=== PATIENT | female | born 1950 | race Caucasian/White ===

== ENCOUNTER → 2019-08-15 | Outpatient (CLI) | payer MEDICARE, OTHER ==
[~2019-08-15] MED LIST: ADVA115A INH; ANAS1TAB2 PO; FLON1SPR NARES; HYDR12.55 PO; IRBE300T7 PO; LATA0.0015 OP; LEVO88TA3 PO; SIMV20TA22 PO; TIMOXEOPD OD
--- NOTE | 2019-08-25 12:03 | RADONC ---
RADIATION ONCOLOGY CONSULTATION NOTE DATE: 08/15/2019 CHART NUMBER: [id number] DIAGNOSIS: Left breast cancer. STAGE: I A, T1c, N0, M0, grade 2, ER positive, IL positive, HER2/keke negative, oncotype score 22. ECOG PERFORMANCE STATUS: 0 CONSULTATION NOTE: Ms. Hampton is a delightful 69-year-old white female with the diagnosis of what appears to be a stage I A, T1c, N0, M0, moderately differentiated invasive ductal carcinoma of the left breast which is ER positive, IL positive and HER2/keke negative who is presenting to us today status post lumpectomy and sentinel lymph node biopsy as well as axillary sampling for consideration of postoperative radiation therapy in attempt to increase the likelihood of achieving local control. HISTORY OF PRESENT ILLNESS: The patient was in her usual state of health but was found on routine mammogram done on 04/30/2019 to have a suspicious region in the outer aspect of her left breast. On 06/24/2019, the patient underwent lumpectomy, sentinel lymph node biopsy and axillary lymph node sampling. Pathology revealed a 12 mm moderately differentiated invasive carcinoma. The margins were re-excised and all margins were now negative. A total of four lymph nodes were sampled one of which was a sentinel lymph node and were negative for malignancy. The tumor was estrogen receptor positive, progesterone receptor positive and HER2/keke negative. Oncotype type testing was done with a recurrence score of 22 for a distance recurrent risk at 9 years with AI or CHU alone at 8%. It was deemed that she would not benefit from chemotherapy and has initiated anastrozole with her medical oncologist. I do not at this time have a medical oncology note however. She is now presenting for discussion of postoperative radiation therapy for conservative breast management. PAST MEDICAL HISTORY: The patient's past medical history is positive for cataract in the right eye for which she has had surgery. She is deaf in her left ear. She has hypertension. She had hyperthyroidism and underwent treatment with iodine 131. She is now hypothyroid and is on levothyroxine. She has had a partial knee replaced. She had a right mastectomy for DCIS with reconstruction in 2010 under the age of 79. ALLERGIES: The patient is allergic to CODEINE and PENICILLIN. SOCIAL HISTORY: The patient does not smoke cigarettes. She drinks alcohol socially. FAMILY HISTORY: The patient's family history is positive for a mother with breast cancer. REVIEW OF SYSTEMS: The patient's review of systems is positive for hearing loss in the left ear, but is otherwise noncontributory. Denies nausea, vomiting, fevers, chills, night sweats, diplopia, headaches, anxiety or depression, anorexia, weight loss, visual disturbances, chest pain, urinary or bowel difficulties, bone pain, or neurological problems. PHYSICAL EXAMINATION: Physical examination was deferred as per COVID-19 precautions. We will examine the patient's breast at the time of simulation. ASSESSMENT: Clearly the patient is a candidate for external beam radiation therapy and I have so informed her. I have discussed with the patient in detail the potential benefits as well as possible acute and chronic sequelae of external beam radiation therapy. We discussed logistics of treatment planning, simulation and subsequent fractionated daily radiation treatments. I did discuss with the patient in detail the options with regards to fractionation schedule. We discussed the traditional fractionation schedule for a total of 33 fractions of which 27 are delivered to the breast and the remaining 6 to the primary site versus the hypofractionated [place] protocol. The patient is leaning towards hypofractionation and we will run a treatment plan. I believe she would be a good candidate for that and a final decision will be made at time of planning. Thank you for allowing us to participate in the care of this very pleasant woman. If I could be of any further assistance, please feel free to contact me anytime. cc: MD Shelbi Fitzgerald MD Benjamin Phen, MD MTDD
== END ==
LOC: M ONCR 09:53
PROVIDERS: ATTEND Radiology Radiation Oncology
DX: C50.812 Malignant neoplasm of overlapping sites of left female breast (principal)

== ENCOUNTER 2019-08-20 10:28 | Outpatient (RCR) | payer MEDICARE, OTHER ==
[2019-08-20 11:29] LABS: BASO % 0.4 % (0.0-1.0); EOS # 0.3 10^3/uL (0.0-0.5); EOS % 4.7 % (0.0-3.0); HEMATOCRIT 38.8 % (36.0-47.0); HEMOGLOBIN 12.4 g/dl (12.0-15.5); LYMPH # 1.4 10^3/uL (1.5-5.0); MEAN CORPUSCULAR HEMOGLOBIN 30.5 pg (27.0-33.0); MEAN CORPUSCULAR VOLUME 95.3 fl (80.0-96.0); MONO # 0.5 10^3/uL (0.0-0.8); MONO % 7.1 % (0.0-5.0); NEUTROPHILS # 4.6 10^3/uL (1.5-8.5); NEUTROPHILS % 67.4 % (36.0-66.0); PLATELET COUNT, AUTOMATED 207 10^3/uL (150-450); RED BLOOD COUNT 4.07 10^6/uL (4.00-5.40); WHITE BLOOD COUNT 6.8 10^3/uL (4.0-10.0)
== END 2019-09-05 ==
LOC: M ONCR 10:28
PROVIDERS: ATTEND Radiology Radiation Oncology
DX: C50.812 Malignant neoplasm of overlapping sites of left female breast (principal)

== ENCOUNTER 2019-10-03 11:30 | Outpatient (RCR) | payer MEDICARE, OTHER | END 2019-10-06 | LOC: M ONCR 11:30 | PROVIDERS: ATTEND General Practice | DX: C50.812 Malignant neoplasm of overlapping sites of left female breast (principal); Z88.0 Allergy status to penicillin; Z88.5 Allergy status to narcotic agent ==

== ENCOUNTER → 2020-07-14 | Outpatient (CLI) | payer MEDICARE, OTHER ==
--- NOTE | 2020-07-15 08:26 | RADONC ---
Radiation Oncology Hx/FUP Radiation Oncology Hx/FUP Date of Service: Jul 14, 2020 Pt Identifier Shirin Hampton is a 70 year old female seen for a followup visit today at the department of radiation oncology for a history of left breast cancer pT1cN0(sn)M0 ER/CO+ HER2- Grade 2. She underwent lumpectomy and SLNB on 06/24/19 in [facility] and initiated anastrozole with her medical oncologist down there. She returned to [place] and underwent adjuvant partial breast RT 40 Gy in 15 fractions completed 10/03/19. She is seen now after overwintering in [place] for routine follow up and survivorship care. Diagnosis/Treatment History Oncologic History 2010-Right mastectomy for DCIS with reconstruction Left breast cancer 2019 The patient was in her usual state of health but was found on routine mammogram done on 04/30/2019 to have a suspicious region in the outer aspect of her left breast. On 06/24/2019, the patient underwent lumpectomy, sentinel lymph node biopsy and axillary lymph node sampling. Pathology revealed a 12 mm moderately differ entiated invasive carcinoma. The margins were re-excised and all margins were now negative. A total of four lymph nodes were sampled one of which was a sentinel lymph node and were negative for malignancy. The tumor was estrogen receptor positive, progesterone receptor positive and HER2/keke negative. Oncotype type testing was done with a recurrence score of 22 for a distance recurrent risk at 9 years with AI or CHU alone at 8%. It was deemed that she would not benefit from chemotherapy and has initiated anastrozole with her medical oncologist. Completed adjuvant partial breast RT 40 Gy in 15 fractions 09/14/20-10/02/20 Recent data: 05/26/20 Left Mammogram ([facility]) Negative BIRADS 3 Survivorship Test Due Next Last result Notes TSH, T4* 6m post-tx, then q1y N/A Carotid US* q10 y post-tx N/A Smoking cessation Assess annually if applicable N/A Screening CT chest q1y if eligible per USPSTF N/A Mammograms Min q1y, if breast conservation winter 202005/26/20 negative CBC,CMP, Lipids q1y 2021 DEXA q2y if on AI 2021 Medical oncologist in [place] overseeing Interval History Feels well. No breast or skin complaints. No swelling or pain in the arms. She intends to go to [place] in November and stay until June 2021. Appetite good and weight stable. Current Therapy Anastrozole Stage Stage IA left breast cancer pT1cN0(sn) M0 ER/CO+ HER2- Grade 2 Social History: Never smoker Social drinker Allergies / Meds Home Meds Reported Medications Simvastatin (Simvastatin) 20 Mg Tablet, 20 MG PO DAILY, TAB 08/15/19 Latanoprost/Pf (Latanoprost 0.005% Eye Drop) 7.5 Ml Drops, 1 DROP OP DAILY, CONTAINER 08/15/19 Irbesartan (Irbesartan) 300 Mg Tablet, 300 MG PO DAILY for 30 Days, #30 TAB 08/15/19 Hydrochlorothiazide (Hydrochlorothiazide) 12.5 Mg Tablet, 12.5 MG PO DAILY, TAB 08/15/19 Fluticasone Propionate (Flonase Allergy Relief) 9.9 Ml [place].susp, 2 SPRAY NARES DAILY for 30 Days, #9.9 ML 08/15/19 Timolol Maleate (Timolol Maleate) 0.25% [place].gel, 1 DROP OD QAM for 30 Days, #5 ML 08/15/19 Anastrozole (Anastrozole) 1 Mg Tablet, 1 TAB PO DAILY for 30 Days, #30 TAB 08/15/19 Levothyroxine Sodium (LEVOTHYROXINE SODIUM) 88 Mcg Tablet, 88 MCG PO DAILY for 30 Days, #30 TAB 08/15/19 Fluticasone Propion/Salmeterol (Advair Hfa 115-21 Mcg Inhaler) 12 Gm Hfa.aer.ad, 2 PUFF INH BID for 30 Days, #12 GRAM 08/15/19 Review of Systems Review of Systems Constitutional: Denies: Fatigue, Weight Loss Eyes: Denies: Pain HEENT: Denies: Head Aches Skin: Denies: Rash, Lesions Breast: Denies: New Breast Lumps / Masses, Nipple Retraction, Nipple Discharge, Breast Skin Changes, Breast Pain or Tenderness, Other Breast Complaints Pulmonary: Denies: Dyspnea Cardiovascular: Denies: Chest Pain Gastrointestinal: Denies: Abdominal Pain Hematologic: Denies: Bruising, Bleeding Excessively Musculoskeletal: Denies: Neck pain, Arm pain, Back pain, Leg pain Neurological: Denies: Weakness, Numbness Psych: Reports: Mood Normal Physical Examination Vital Signs Wt 117 lbs T 97.7 P 62 RR 16 BP 143/76 O2 98% Pain 0 Fatigue 0 General Exam: Positive: Alert, Cooperative, No Acute Distress Eye Exam: Positive: PERRLA, EOMI ENT EXAM: Positive: Atraumatic, Mucous membr. moist/pink Neck Exam: Positive: Supple Chest Exam: Positive: Clear to auscultation Heart Exam: Positive: Rate Normal Breast Exam: Positive: Symmetric Bilaterally (Reconstructed right breast and left breast with similar shape and lay. ); Negative: Lumps or Masses (Mild fibrosis palpable at the left surgical site, no nodularity or mass. Right reconstructed breast without palpable abnormalities. No axillary adenopathy), Skin Changes (No RT related skin sequelae on left) Abdomen Exam: Positive: Soft Extremity Exam: Negative: Edema Skin Exam: Positive: Nl turgor and temperature Neuro Exam: Positive: Normal Gait, Normal Speech, Cranial Nerves 3-12 NL Psych Exam: Positive: Mental status NL Diagnostic and Laboratory Diagnostic Review Radiologic images, relevant labs and pathology reports were personally reviewed and discussed with Ms. Hampton. Assessment and Plan Impression Assessment Ms. Hampton is a 70 year old female with a history of left breast cancer pT1cN0(sn)M0 ER/CO+ HER2- Grade 2. She underwent lumpectomy and SLNB on 06/24/19 in [facility] and initiated anastrozole with her medical oncologist down there. She returned to [place] and underwent adjuvant partial breast RT 40 Gy in 15 fractions completed 10/03/19. She is seen now after overwintering in [place] for routine follow up and survivorship care. She is doing well without any evidence of recurrent disease on the left. Recent left mammogram was negative. Her next is scheduled for the Winter in [place]. As she intends to leave in the Fall and return in June 2021, we agreed to annual fol low up here. In the meantime she will see her medical oncologist in [place]. She is not due for any survivorship testing at this time. Performance Status ECOG 0 Plan Follow up in 12 months Ms. Hampton was encouraged to call with questions or concerns in the interim period. Billing Statement Total time of [22] minutes was spent preparing for the visit [1], obtaining HPI [4], examining the patient [3], reviewing diagnostic tests [1], discussing management options [4], coordinating care [1], and writing this note [8]. TAM ESTEVEZ MD Jul 15, 2020 08:26
== END ==
LOC: M ONCR 14:10
PROVIDERS: ATTEND General Practice
DX: C50.812 Malignant neoplasm of overlapping sites of left female breast (principal); Z92.3 Personal history of irradiation

== ENCOUNTER → 2021-07-13 | Outpatient (CLI) | payer MEDICARE, OTHER | LOC: M ONCR 14:03 | PROVIDERS: ATTEND General Practice | DX: Z08 Encounter for follow-up examination after completed treatment for malignant neoplasm (principal); C50.912 Malignant neoplasm of unspecified site of left female breast; Z79.811 Long term (current) use of aromatase inhibitors; Z79.899 Other long term (current) drug therapy; Z92.3 Personal history of irradiation; Z92.21 Personal history of antineoplastic chemotherapy ==

== ENCOUNTER → 2022-07-13 | Outpatient (CLI) | payer MEDICARE, OTHER | LOC: M ONCR 14:51 | PROVIDERS: ATTEND General Practice | DX: C50.912 Malignant neoplasm of unspecified site of left female breast (principal); Z71.2 Person consulting for explanation of examination or test findings; Z79.51 Long term (current) use of inhaled steroids; Z79.811 Long term (current) use of aromatase inhibitors; Z79.899 Other long term (current) drug therapy; Z90.11 Acquired absence of right breast and nipple; Z92.3 Personal history of irradiation; Z98.890 Other specified postprocedural states ==

== ENCOUNTER 2023-07-21 10:31 | Inpatient (IN) | payer MEDICARE, OTHER ==
[~2023-07-21] VITALS: Ht 149.9 cm; Wt 46.7 kg
[2023-07-21] MEDS: IRBESARTAN 150MG TAB PO SCH (09:00)
[~2023-07-21 10:31] MED LIST changes: +IRBE300T25 PO; -IRBE300T7 PO; +SIMVASTATIN 20 MG TAB PO SCH
[2023-07-21] MEDS ORDERED: FLUT1BLS INH (10:42)
[2023-07-21] MEDS ORDERED: ALBU8.5H INH (10:42)
[2023-07-21] MEDS ORDERED: PRED10TA2 PO (10:42)
[2023-07-21] MEDS ORDERED: LEVO100T5 PO (10:42)
[2023-07-21 11:45] LABS: BASO # 0.1 10^3/uL (0.0-0.2); BASO % 0.3 % (0.0-1.0); EOS % 0.1 % (0.0-3.0); HEMATOCRIT 49.5 % (36.0-47.0); HEMOGLOBIN 16.6 g/dl (12.0-15.5); LYMPH # 1.7 10^3/uL (1.5-5.0); LYMPH % 7.8 % (24.0-44.0); MEAN CORPUSCULAR HGB CONC 33.5 g/dl (32.0-36.5); MEAN CORPUSCULAR VOLUME 95.4 fl (80.0-96.0); MONO # 1.7 10^3/uL (0.0-0.8); MONO % 7.8 % (2.0-8.0); NEUTROPHILS # 18.3 10^3/uL (1.5-8.5); NEUTROPHILS % 82.8 % (36.0-66.0); PLATELET COUNT, AUTOMATED 469 10^3/uL (150-450); RED BLOOD COUNT 5.19 10^6/uL (4.00-5.40)
[2023-07-21 12:12] LABS: ALBUMIN 4.1 G/DL (3.2-5.2); ALKALINE PHOSPHATASE 151 U/L (46-116); ALT/SGPT 22 U/L (7.0-40); AST/SGOT 23 U/L (<34); BILIRUBIN,DIRECT 0.2 MG/DL (<0.4); BILIRUBIN,TOTAL 0.5 MG/DL (0.3-1.2); BLOOD UREA NITROGEN 19 MG/DL (9-23); CARBON DIOXIDE LEVEL 29 MMOL/L (20-31); CHLORIDE LEVEL 99 MMOL/L (98-107); GLOMERULAR FILTRATION RATE > 60.0 (>39); GLUCOSE, FASTING 113 MG/DL (74-106); POTASSIUM SERUM 4.1 MMOL/L (3.5-5.1); SODIUM LEVEL 138 MMOL/L (136-145); TOTAL PROTEIN 8.3 G/DL (5.7-8.2)
[2023-07-21 12:14] LABS: THYROID STIMULATING HORMONE 2.138 uIU/ML (0.55-4.78); THYROXINE (T4) 11.6 UG/DL (4.5-10.9)
[2023-07-21 12:18] LABS: VENOUS BASE EXCESS -0.2 (-2.0-2.0); VENOUS HCO3 25.6 MMOL/L (23.0-27.0); VENOUS O2 SATURATION 68.4 % (60.0-80.0); VENOUS PARTIAL PRESSURE CO2 45.9 mmHg (38.0-50.0); VENOUS PARTIAL PRESSURE O2 37.4 mmHg (30.0-50.0); VENOUS PH 7.364 UNITS (7.330-7.430); VENOUS STANDARD HCO3 23.6 MMOL/L
[2023-07-21] MEDS: IPRATROPIUM 0.5MG/ALBUTEROL 2.5MG INH SOL UD 3ML (DUONEB) NEB ONE (12:28)
[2023-07-21] MEDS: methylPREDNISolone 125MG 2ML VIAL IV ONE (12:32)
[2023-07-21 12:37] LABS: INR 0.99; PROTHROMBIN TIME 12.8 SECONDS (12.5-14.5)
[2023-07-21 13:03] LABS: PROCALCITONIN 0.09 ng/ml
[2023-07-21] MEDS ORDERED: ISOVUE-370 76% 100ML VIAL As Ordered ONE (13:09)
[2023-07-21] MEDS: LR 1,000 ML IV ONE ×2 (13:32→15:31)
[2023-07-21] MEDS: cefTRIAXone SOD 1 GM in D5W MINI-BAG PLUS 50 ML IV ONE (15:17)
[2023-07-21] MEDS: AZITHROMYCIN INJ 500 MG, VIAL MATE ADAPTER 1 EACH in NS 250 ML IV ONE (15:33)
[2023-07-21] MEDS ORDERED: DORZ2SOL5 OD (15:55)
[2023-07-21] MEDS ORDERED: XALA0.007 OD (15:55)
[2023-07-21] MEDS ORDERED: AMOX875T PO (15:57)
[2023-07-21] MEDS ORDERED: HOME MED LIST COMPLETE! XX SCH (16:00)
[2023-07-21 16:15] VITALS: BP 128/88; TEMP 99; O2SAT 93
[2023-07-21] MEDS: hydroCHLOROthiazide 12.5 MG CAPSULE PO SCH (16:31)
[2023-07-21] MEDS: SYMBICORT 80/4.5MCG INHALER 6GM INH SCH (19:10)
[2023-07-21 20:00] VITALS: BP 133/88; TEMP 98.8; O2SAT 95
[2023-07-21] MEDS: SIMVASTATIN 20 MG TAB PO SCH (20:34)
[2023-07-21] MEDS: LATANOPROST 0.005% OPHTH SOLN 2.5 ML OD SCH (20:34)
[2023-07-21] MEDS: COSOPT OCUMETER PLUS 10ML (DORZOLAMIDE/TIMOLOL) OD SCH (20:34)
[2023-07-22] VITALS (7 sets, daily range): BP systolic 138–165; BP diastolic 80–88; TEMP 97.9–98.1; O2SAT 84–96
[2023-07-22] MEDS: LEVOTHYROXINE 100MCG TABLET (0.1MG) PO SCH (05:04)
[2023-07-22 05:55] LABS: HEMATOCRIT 38.4 % (36.0-47.0); MEAN CORPUSCULAR HEMOGLOBIN 31.6 pg (27.0-33.0); MEAN CORPUSCULAR HGB CONC 32.8 g/dl (32.0-36.5); MEAN CORPUSCULAR VOLUME 96.2 fl (80.0-96.0); RED BLOOD COUNT 3.99 10^6/uL (4.00-5.40)
[2023-07-22 06:04] LABS: HEMOGLOBIN 12.6 g/dl (12.0-15.5); PLATELET COUNT, AUTOMATED 244 10^3/uL (150-450)
[2023-07-22 06:21] LABS: ALBUMIN 2.7 G/DL (3.2-5.2); ALKALINE PHOSPHATASE 99 U/L (46-116); ALT/SGPT 16 U/L (7.0-40); AST/SGOT 16 U/L (<34); BILIRUBIN,DIRECT 0.1 MG/DL (<0.4); BILIRUBIN,TOTAL 0.3 MG/DL (0.3-1.2); BLOOD UREA NITROGEN 16 MG/DL (9-23); CALCIUM LEVEL 9.1 MG/DL (8.3-10.6); CARBON DIOXIDE LEVEL 31 MMOL/L (20-31); CHLORIDE LEVEL 107 MMOL/L (98-107); CREATININE FOR GFR 0.62 MG/DL (0.55-1.30); GLOMERULAR FILTRATION RATE > 60.0 (>39); GLUCOSE, FASTING 102 MG/DL (74-106); SODIUM LEVEL 141 MMOL/L (136-145); TOTAL PROTEIN 5.7 G/DL (5.7-8.2)
[2023-07-22] MEDS: FLUTICASONE PROP 0.05% NASAL SPRAY 16 GM (FLONASE) NARES SCH (09:04)
[2023-07-22] MEDS: methylPREDNISolone 40MG 1ML VIAL IV SCH (09:04)
[2023-07-22] MEDS: AZITHROMYCIN 250MG TABLET PO SCH (09:06)
[2023-07-22] MEDS: ENOXAPARIN 40MG/0.4ML SYRINGE (J1650 PER 10MG) SC SCH (09:06)
[2023-07-22] MEDS: guaiFENesin SYRUP 200MG 10ML UDC PO PRN (17:04)
[2023-07-22] MEDS: cefTRIAXone SOD 1 GM in D5W MINI-BAG PLUS 50 ML IV SCH (17:05)
[2023-07-23] VITALS (9 sets, daily range): BP systolic 132–190; BP diastolic 62–106; TEMP 97.5–98.8; O2SAT 82–97
[2023-07-23 06:19] LABS: HEMATOCRIT 41.1 % (36.0-47.0); HEMOGLOBIN 13.6 g/dl (12.0-15.5); MEAN CORPUSCULAR HEMOGLOBIN 31.8 pg (27.0-33.0); MEAN CORPUSCULAR HGB CONC 33.1 g/dl (32.0-36.5); PLATELET COUNT, AUTOMATED 299 10^3/uL (150-450); RED BLOOD COUNT 4.28 10^6/uL (4.00-5.40); WHITE BLOOD COUNT 14.8 10^3/uL (4.0-10.0)
[2023-07-23 06:53] LABS: BLOOD UREA NITROGEN 21 MG/DL (9-23); CALCIUM LEVEL 9.2 MG/DL (8.3-10.6); CARBON DIOXIDE LEVEL 30 MMOL/L (20-31); CHLORIDE LEVEL 106 MMOL/L (98-107); CREATININE FOR GFR 0.73 MG/DL (0.55-1.30); GLOMERULAR FILTRATION RATE > 60.0 (>39); GLUCOSE, FASTING 102 MG/DL (74-106); POTASSIUM SERUM 4.5 MMOL/L (3.5-5.1); SODIUM LEVEL 144 MMOL/L (136-145)
[2023-07-23] MEDS: ANASTROZOLE 1MG TABLET (PATIENT'S OWN MED) PO SCH (09:56)
[2023-07-23] MEDS: **hydrALAZINE** 10 MG TAB PO ONE (14:08)
[2023-07-23 14:58] LABS: BASO % 0.2 % (0.0-1.0); HEMOGLOBIN 13.8 g/dl (12.0-15.5); LYMPH # 1.2 10^3/uL (1.5-5.0); LYMPH % 6.7 % (24.0-44.0); MEAN CORPUSCULAR HEMOGLOBIN 31.7 pg (27.0-33.0); MEAN CORPUSCULAR HGB CONC 33.7 g/dl (32.0-36.5); MEAN CORPUSCULAR VOLUME 94.3 fl (80.0-96.0); MONO # 0.4 10^3/uL (0.0-0.8); MONO % 2.1 % (2.0-8.0); NEUTROPHILS # 15.1 10^3/uL (1.5-8.5); NEUTROPHILS % 88.5 % (36.0-66.0); PLATELET COUNT, AUTOMATED 315 10^3/uL (150-450); RED BLOOD COUNT 4.35 10^6/uL (4.00-5.40); WHITE BLOOD COUNT 17.1 10^3/uL (4.0-10.0)
[2023-07-23 15:32] LABS: ALBUMIN 2.9 G/DL (3.2-5.2); ALKALINE PHOSPHATASE 107 U/L (46-116); ALT/SGPT 17 U/L (7.0-40); AST/SGOT 17 U/L (<34); BILIRUBIN,TOTAL 0.3 MG/DL (0.3-1.2); BLOOD UREA NITROGEN 24 MG/DL (9-23); CALCIUM LEVEL 9.2 MG/DL (8.3-10.6); CARBON DIOXIDE LEVEL 31 MMOL/L (20-31); CHLORIDE LEVEL 106 MMOL/L (98-107); CREATININE FOR GFR 0.67 MG/DL (0.55-1.30); GLOMERULAR FILTRATION RATE > 60.0 (>39); GLUCOSE, FASTING 118 MG/DL (74-106); MAGNESIUM LEVEL 1.9 MG/DL (1.8-2.4); SODIUM LEVEL 142 MMOL/L (136-145); TOTAL PROTEIN 6.3 G/DL (5.7-8.2)
[2023-07-23] MEDS: guaiFENesin SYRUP 200MG 10ML UDC PO PRN (20:28)
[2023-07-24 03:50] VITALS: BP 156/75; TEMP 95.2; O2SAT 95
[2023-07-24 06:24] LABS: HEMATOCRIT 41.9 % (36.0-47.0); MEAN CORPUSCULAR HEMOGLOBIN 31.9 pg (27.0-33.0); MEAN CORPUSCULAR HGB CONC 33.4 g/dl (32.0-36.5); MEAN CORPUSCULAR VOLUME 95.4 fl (80.0-96.0); PLATELET COUNT, AUTOMATED 306 10^3/uL (150-450); RED BLOOD COUNT 4.39 10^6/uL (4.00-5.40); WHITE BLOOD COUNT 11.4 10^3/uL (4.0-10.0)
[2023-07-24 06:53] LABS: BLOOD UREA NITROGEN 27 MG/DL (9-23); CALCIUM LEVEL 8.9 MG/DL (8.3-10.6); CARBON DIOXIDE LEVEL 32 MMOL/L (20-31); CHLORIDE LEVEL 103 MMOL/L (98-107); CREATININE FOR GFR 0.86 MG/DL (0.55-1.30); GLOMERULAR FILTRATION RATE > 60.0 (>39); GLUCOSE, FASTING 107 MG/DL (74-106); POTASSIUM SERUM 4.5 MMOL/L (3.5-5.1); SODIUM LEVEL 140 MMOL/L (136-145)
[2023-07-24 08:27] VITALS: BP 132/76; TEMP 98.6; O2SAT 92
[2023-07-24] MEDS: predniSONE 20 MG TAB PO SCH (08:32)
[2023-07-24 12:00] VITALS: BP 128/64; TEMP 97.5; O2SAT 94
[2023-07-24 20:00] VITALS: BP 128/70; TEMP 97.9; O2SAT 91
[2023-07-25 04:00] VITALS: BP 160/72; TEMP 98.1; O2SAT 92
[2023-07-25 05:59] LABS: HEMATOCRIT 41.2 % (36.0-47.0); HEMOGLOBIN 13.7 g/dl (12.0-15.5); MEAN CORPUSCULAR HEMOGLOBIN 31.1 pg (27.0-33.0); MEAN CORPUSCULAR HGB CONC 33.3 g/dl (32.0-36.5); MEAN CORPUSCULAR VOLUME 93.4 fl (80.0-96.0); PLATELET COUNT, AUTOMATED 294 10^3/uL (150-450); RED BLOOD COUNT 4.41 10^6/uL (4.00-5.40)
[2023-07-25 06:45] LABS: BLOOD UREA NITROGEN 25 MG/DL (9-23); CALCIUM LEVEL 9.1 MG/DL (8.3-10.6); CARBON DIOXIDE LEVEL 32 MMOL/L (20-31); CHLORIDE LEVEL 106 MMOL/L (98-107); CREATININE FOR GFR 0.76 MG/DL (0.55-1.30); GLOMERULAR FILTRATION RATE > 60.0 (>39); GLUCOSE, FASTING 80 MG/DL (74-106); POTASSIUM SERUM 3.8 MMOL/L (3.5-5.1); SODIUM LEVEL 142 MMOL/L (136-145)
[2023-07-25 07:55] VITALS: BP 150/78
[2023-07-25 07:58] LABS: PROCALCITONIN <0.04 ng/ml
[2023-07-25] MEDS ORDERED: PRED10TA2 PO (11:20)
[2023-07-25] MEDS ORDERED: GUAI100S51 PO (11:20)
[2023-07-26 19:09] LABS: URINE STREP PNEUMONIAE ANTIGEN NOT DETECTED (NOT DETECT)
== END 2023-07-25 11:59 | disposition home or self-care (01) | DRG 195 ==
LOC: M ED 10:31 → M ED INP 15:44 → EEVIPCON 15:44 → M MSPAV 16:16
PROVIDERS: ADMIT Internal Medicine; ATTEND Internal Medicine
DX: J12.89 Other viral pneumonia (principal); E03.9 Hypothyroidism, unspecified; E78.5 Hyperlipidemia, unspecified; H40.9 Unspecified glaucoma; I10 Essential (primary) hypertension; B34.8 Other viral infections of unspecified site; Z85.3 Personal history of malignant neoplasm of breast; I16.0 Hypertensive urgency; Z79.899 Other long term (current) drug therapy; Z88.5 Allergy status to narcotic agent

== ENCOUNTER → 2023-08-21 | Outpatient (CLI) | payer MEDICARE, OTHER ==
[~2023-08-21] MED LIST changes: +ALBU8.5H INH; +AMOX875T PO; +DORZ2SOL5 OD; +FLUT1BLS INH; +GUAI100S51 PO; +LEVO100T5 PO; +PRED10TA2 PO; -SIMVASTATIN 20 MG TAB PO SCH; +XALA0.007 OD
== END ==
LOC: M ONCR 09:34
PROVIDERS: ATTEND General Practice
DX: Z08 Encounter for follow-up examination after completed treatment for malignant neoplasm (principal); Z85.3 Personal history of malignant neoplasm of breast; Z79.811 Long term (current) use of aromatase inhibitors; Z79.899 Other long term (current) drug therapy; Z88.5 Allergy status to narcotic agent; Z92.3 Personal history of irradiation

== ENCOUNTER → 2024-08-14 | Outpatient (CLI) | payer MEDICARE, OTHER ==
[~2024-08-14] MED LIST changes: +CLOP75TA2; +METO1TAB87
[2024-08-14 10:29] LABS: BASO # 0.1 10^3/uL (0.0-0.2); BASO % 0.7 % (0.0-1.0); EOS # 0.5 10^3/uL (0.0-0.5); EOS % 6.5 % (0.0-3.0); LYMPH # 1.7 10^3/uL (1.5-5.0); LYMPH % 24.7 % (24.0-44.0); MONO # 0.4 10^3/uL (0.0-0.8); MONO % 5.7 % (2.0-8.0); NEUTROPHILS # 4.3 10^3/uL (1.5-8.5); NEUTROPHILS % 62.3 % (36.0-66.0); PLATELET COUNT, AUTOMATED 211 10^3/uL (150-450)
[2024-08-14 10:37] LABS: CALCIUM LEVEL 8.9 MG/DL (8.3-10.6); CARBON DIOXIDE LEVEL 29.0 MMOL/L (20-31); CHLORIDE LEVEL 107.0 MMOL/L (98-107); CHOLESTEROL LEVEL 151.0 MG/DL (<200); CHOLESTEROL RISK RATIO 2.86 (<5); CREATININE FOR GFR 0.8 MG/DL (0.55-1.30); GLOMERULAR FILTRATION RATE 76.3 (>39); LDL CHOLESTEROL 82.7 MG/DL (<100); NON-HDL-C 98.3 MG/DL; POTASSIUM SERUM 4.5 MMOL/L (3.5-5.1); SODIUM LEVEL 146.0 MMOL/L (136-145); TRIGLYCERIDES LEVEL 78.0 MG/DL (<150)
== END ==
LOC: M PLALAB 08:45
PROVIDERS: ATTEND Student in an Organized Health Care Education/Training Program
DX: Z00.00 Encounter for general adult medical examination without abnormal findings (principal); R01.1 Cardiac murmur, unspecified; Z79.899 Other long term (current) drug therapy